=== PATIENT | female | born 2000 | race Two or more races ===

== ENCOUNTER → 2020-02-18 | Outpatient (CLI) | payer OTHER ==
--- NOTE | 2020-02-18 11:56 | KCIC ---
Portable chest x-ray without comparison for tuberculosis follow-up. FINDINGS: The lungs are clear. Heart size within normal limits. No suspicious osseous abnormalities. IMPRESSION: 1. Normal chest x-ray. Electronically signed by: Milton Lozada MD (02/18/2020 11:52 AM) [id number]
== END ==
LOC: KCIC 10:24
PROVIDERS: ATTEND Family Medicine
DX: Z11.1 Encounter for screening for respiratory tuberculosis (principal)
CPT/HCPCS: 71045

== ENCOUNTER 2020-05-23 11:44 | Emergency (ER) | payer SELFPAY | END 2020-05-23 13:01 | disposition left against medical advice (07) | LOC: ER 11:44 | DX: R10.9 Unspecified abdominal pain (principal); Z53.21 Procedure and treatment not carried out due to patient leaving prior to being seen by health care provider ==